=== PATIENT | female | born 1995 | race Caucasian/White ===

== ENCOUNTER 2016-08-25 10:02 | Emergency (ER) | payer SELFPAY ==
[2016-08-25] MEDS ORDERED: NS 1,000 ML IV ONE (10:20)
[2016-08-25] MEDS ORDERED: METOCLOPRAMIDE 10 MG/2 ML VIAL IVP ONE (10:36)
[2016-08-25 11:35] VITALS: BP 119/67; PULSE 66; RESP 12; TEMP 98.2; O2SAT 99
--- NOTE | 2016-08-25 11:38 | UCPHY ---
H & P Patient Type: New Chief Complaint Nursing Narrative: vomiting since 4am. unable to keep po fluids down . CARBONE. Denies fever ,urinary issues. Time Seen by Provider: 08/25/16 10:25 HPI/ROS: This patient reports spontaneous onset of vomiting and 4:00 a.m. the day of presentation. She reports ongoing nausea after vomiting 5 or 6 times prior to arrival. She developed mild crampy abdominal pain diffuse in location after the onset of vomiting but states this is minimal at this time. She has no other associated symptoms except onset of mild headache after vomiting a few times. The location of the headache is bitemporal and similar to previous headaches. ROS: No fevers. No recent URI symptoms. She denies any coughing. No lightheadedness or heart palpitations. Last menstrual period was a few days ago. No urinary symptoms or other symptoms. She has normal bowel movements. No diarrhea and no bloody stools or bloody emesis. 10 point ROS is otherwise negative. Source: Patient Exam Limitations: No limitations - Personal History LMP (Females 10-55): 1-7 Days Ago - Medical/Surgical History Other PMH: PCP [facility]. Anxiety. FLu vacc UTD . Tetanus UTD - Family History Significant Family History: No pertinent family hx - Social History Smoking Status: Never smoked Alcohol Use: None Drug Use: None Additional Social History: No recent foreign travel. No suspect food - Physical Exam Exam: General Appearance: Pleasant 21-year-old female Alert, no distress. Eyes: Pupils equal and round no pallor or injection. ENT, Mouth: Mucous membranes dry. Respiratory: There are no retractions, lungs are clear to auscultation. Cardiovascular: Regular rate and rhythm. Gastrointestinal: Normoactive, soft, nontender Neurological: Alert with no deficits Skin: Warm and dry, no rashes. Mild pallor initially Musculoskeletal: Neck is supple nontender. Extremities are symmetrical, full range of motion. Psychiatric: Mood and affect normal DIFFERENTIAL DIAGNOSIS: After history and physical exam differential diagnosis was considered for viral gastroenteritis, , food intolerance, Constitutional: Initial Vital Signs Temperature (C) 36.7 C 08/25/16 10:16 Heart Rate 78 08/25/16 10:16 Respiratory Rate 16 08/25/16 10:16 Blood Pressure 125/73 H 08/25/16 10:16 O2 Sat (%) 97 08/25/16 10:16 O2 Delivery Mode Room Air Allergies/Adverse Reactions: No Known Allergies Allergy (Unverified 08/25/16 10:19) Home Medications: Medication Instructions Recorded Escitalopram Oxalate 08/25/16 Norethindrone A-E Estradiol 08/25/16 Promethazine HCl [Phenergan 25mg 25 mg PO Q6 PRN #3 tab 08/25/16 (*)] Promethazine HCl [Phenergan 50mg 50 mg AK Q6 PRN #3 suppr 08/25/16 supp (*)] Xanax 08/25/16 Medical Decision Making ED Course/Re-evaluation: IV normal saline bolus Reglan and Benadryl IV with resolution of nausea and cramping she tolerated p. o. fluids thereafter without difficulty. Discussion: Patient with vomiting. We ruled out . I think that she has a viral illness causing this I counseled her regarding this. She appears well after treatment - Data Points Laboratory Results: 08/25/16 10:30 Beta HCG, Qual NEGATIVE Medications Given: Discontinued Medications Diphenhydramine HCl (Benadryl Injection) 25 mg IVP EDNOW ONE Stop: 08/25/16 10:37 Last Admin: 08/25/16 10:40 Dose: 25 mg Sodium Chloride (Ns) 1,000 mls @ 0 mls/hr IV ONCE ONE PRN Reason: Wide Open Stop: 08/25/16 10:21 Last Admin: 08/25/16 10:30 Dose: 1,000 mls Metoclopramide HCl (Reglan Injection) 5 mg IVP EDNOW ONE Stop: 08/25/16 10:37 Last Admin: 08/25/16 10:45 Dose: 5 mg Departure - Departure Clinical Impression: Vomiting Qualifiers: Vomiting type: unspecified Vomiting Intractability: non-intractable Nausea presence: with nausea Qualifier Code: (R11.2) Nausea with vomiting, unspecified Instructions: Acute Nausea and Vomiting (ED) Additional Instructions: Diagnosis: Vomiting Your test was negative Plan: Drink plenty fluids Phenergan pills or suppositories for nausea or vomiting if needed Light diet-bananas, rice, applesauce, soup, toast and similar to the feel improved Return for any significant worsening despite the treatment plan Referrals: [place] STATE,. [Primary Care Provider] - As per Instructions Stand Alone Forms: Work Excuse Prescriptions: Promethazine HCl [Phenergan 25mg (*)] 25 mg PO Q6 PRN #3 tab PRN Reason: nausea Promethazine HCl [Phenergan 50mg supp (*)] 50 mg AK Q6 PRN #3 suppr PRN Reason: vomiting - PQRS PQRS Measurement: NA
== END 2016-08-25 11:51 | disposition home or self-care (01) ==
LOC: CED 10:02
DX: R11.2 Nausea with vomiting, unspecified (principal); R10.9 Unspecified abdominal pain
CPT/HCPCS: 84703-PO; 96361-PO; 96374-PO; 96375-PO; 99204-PO; G0463-PO